=== PATIENT | male | born 1990 ===

== ENCOUNTER 2025-02-19 23:19 | Emergency (ER) | payer SELFPAY ==
[2025-02-19 23:29] VITALS: BP 134/79; PULSE 94; RESP 17; TEMP 36.4; O2SAT 96; BMI 36.8
[2025-02-20 00:10] LABS: Add Manual Diff / Slide Review NO; Basophils Absolute Auto 100 /uL (0-100); Basophils Percent Auto 0.8 % (0-2); Eosinophils Absolute Auto 400 /uL (0-450); Eosinophils Percent Auto 3.6 % (2-4); Hemoglobin 16.6 g/dL (13.5-17.5); Lymphocytes Absolute Auto 2200 /uL (1100-4500); Lymphocytes Percent Auto 20.7 % (25-40); Mean Corpuscular HGB Conc 35.3 % (30-36); Mean Corpuscular Volume 90.6 fL (80-100); Monocytes Absolute Auto 1500 /uL (0-900); Monocytes Percent Auto 14.2 % (3-14); Neutrophils Absolute Auto 6500 /uL (1500-7000); Neutrophils Percent Auto 60.7 % (50-75); Platelet Count 425 X10^3/uL (150-400); Red Blood Cell Count 5.19 X10^6/uL (4.5-5.9); Red Cell Distribution Width 14.8 % (11.6-14.8); White Blood Cell Count 10.8 X10^3/uL (4.5-11.0)
[2025-02-20 00:23] LABS: Alanine Aminotransferase 87 IU/L (<50); Albumin 4.7 g/dL (3.5-5.0); Albumin Globulin Ratio 1.2 (1.0-2.8); Alkaline Phosphatase 64 U/L (38-126); Aspartate Aminotransferase 39 IU/L (17-59); BUN Creatinine Ratio 15.1 (6-22); Bilirubin Total 0.7 mg/dL (0.2-1.3); Blood Urea Nitrogen 13 mg/dL (9-20); Calcium 9.9 mg/dL (8.4-10.2); Carbon Dioxide 27 mmol/L (22-32); Chloride 105 mmol/L (98-107); Estimated Glomerular Filt Rate > 60 mL/min (>60); Globulin 3.8 g/dL (1.7-4.1); Glucose 104 mg/dL (70-99); HEMOLYSIS 20 (0-50); Lipase 151 U/L (23-300); Potassium 4.1 mmol/L (3.4-5.1); Sodium 142 mmol/L (137-145); Total Protein 8.5 g/dL (6.3-8.2)
--- NOTE | 2025-02-20 00:45 | DI.CT.S_ITS ---
PROCEDURE: CT ABDOMEN PELVIS W CON INDICATIONS: abd pain, hx hernia, eval for obst TECHNIQUE: After the administration of intravenous contrast, axial sections acquired from the lung bases to the pubic symphysis. Coronal and sagittal reformats were performed. For radiation dose reduction, the following was used: automated exposure control, adjustment of mA and/or kV according to patient size. COMPARISON: None. FINDINGS: Image quality: Diagnostic Lower chest: Lung bases appear unremarkable. Normal heart size. Liver: Subcentimeter lesion in segment 7, too small to characterize, probably a cyst Gallbladder and biliary system: Under distended, nondilated Pancreas: Nondilated duct Spleen: No splenomegaly Adrenals: No discrete nodules Kidneys: No solid renal mass or hydronephrosis Vessels and lymph nodes: The main portal vein is patent. No abdominal aortic aneurysm or pathologic lymphadenopathy by size criteria. Bowel and peritoneum: Mild gastric distention. There is no acute small bowel obstruction. Colonic diverticula, without definite focal diverticular inflammation. The appendix is nondilated. No drainable abscess or ascites. Body wall: Possible tiny fat containing umbilical hernia. Pelvis: Under distended urinary bladder, with possible wall thickening. Prostate is unremarkable on limited CT evaluation Bones: No aggressive appearing osseous abnormality. IMPRESSION: No small bowel obstruction. Mild gastric distention. Under distended urinary bladder with mild wall thickening, not well assessed on this study. Correlate urinalysis. Other findings above. Dictated by: Flo Naranjo M.D. on 02/20/2025 at 1:11 Approved by: Flo Naranjo M.D. on 02/20/2025 at 1:15
[2025-02-20 01:10] VITALS: BP 123/78; PULSE 92; RESP 18; O2SAT 97
[2025-02-20 01:30] VITALS: PULSE 92; O2SAT 97
--- NOTE | 2025-02-20 01:58 | ED.ABDPAIN ---
HPI - Abdominal Pain General Chief Complaint: Abdominal Pain Stated Complaint: has hernia in pain Time Seen by Provider: 02/20/25 00:45 Source: patient Mode of arrival: Ambulatory History of Present Illness HPI narrative: 34-year-old male reports history of left lower groin area hernia awaiting elective repair through surgery [facility], was lifting 12 packs of soda earlier today, felt increased left lower quadrant pain. No fever or chills. No nausea or vomiting. No black or red stools. Related Data Allergies Allergy/AdvReac Type Severity Reaction Status Date / Time hydrocodone AdvReac Vomiting Verified 02/19/25 23:33 metoclopramide [From Reglan] AdvReac Agitated Verified 02/19/25 23:33 Patient History Social History Smoking Status: Current every day smoker Smoking Status: Current every day smoker tobacco type: cigarettes Exam Narrative Exam Narrative: GENERAL: Well-developed patient, in mild distress. HEAD: Atraumatic. Normocephalic. EYES: Pupils equal round and reactive. Extraocular motions intact. No scleral icterus. No injection or drainage. ENT: Nose without bleeding, purulent drainage. Throat without erythema, tonsillar hypertrophy or exudate. Airway patent. NECK: Trachea midline. Non tender CARDIOVASCULAR: Regular rate and rhythm without murmurs, gallops, or rubs. RESPIRATORY: Clear to auscultation. Breath sounds equal bilaterally. No wheezes, rales, or rhonchi. GASTROINTESTINAL: Abdomen nondistended, left lower quadrant tenderness on exam, no guarding or rebound. No obvious skin changes or bruising to left lower quadrant, no obvious ventral hernia. EXTREMITIES: No edema or joint tenderness. BACK: Nontender without deformity or crepitance. No flank tenderness. NEURO: AOx3. Motor functions grossly nonfocal SKIN: No rash or erythema of visible areas Initial Vital Signs Initial Vital Signs: Vital Signs Temperature 97.5 F L 02/19/25 23:29 Pulse Rate 94 H 02/19/25 23:29 Respiratory Rate 17 02/19/25 23:29 Blood Pressure 134/79 02/19/25 23:29 Pulse Oximetry 96 02/19/25 23:29 Oxygen Delivery Method Room Air 02/19/25 23:29 Course Orders Ordered: ED Orders 02/19/25 23:43 Complete Blood Count AUTO DIFF Stat Comprehensive Metabolic Panel Stat Lipase Stat 02/20/25 00:45 CT abdomen pelvis w con Stat Discontinued Medications Hydromorphone HCl (Hydromorphone 0.5 Mg Inj) 0.5 mg IV NOW ONE Stop: 02/20/25 02:20 Last Admin: 02/20/25 02:24 Dose: 0.5 mg Documented By: RICH Ondansetron HCl (Ondansetron 4 Mg/2 Ml Inj) 4 mg IV NOW PRN PRN Reason: Nausea And Vomiting Ondansetron HCl (Ondansetron 4 Mg Odt) 4 mg PO NOW PRN PRN Reason: Nausea And Vomiting Tramadol HCl (Tramadol 50 Mg Prepack) 1 bottle MISC DIRECTED ONE Stop: 02/20/25 02:20 Last Admin: 02/20/25 02:24 Dose: 1 bottle Documented By: RICH Vital Signs Vital signs: Vital Signs - 8 hr 02/19/25 23:29 02/20/25 01:10 02/20/25 01:30 Temperature 97.5 F L Pulse Rate 94 H 92 H 92 H Respiratory Rate 17 18 Blood Pressure 134/79 123/78 Pulse Oximetry 96 97 97 Oxygen Delivery Method Room Air 02/20/25 02:00 02/20/25 02:25 02/20/25 02:25 Temperature Pulse Rate 90 89 Respiratory Rate Blood Pressure 130/81 Pulse Oximetry 97 97 Oxygen Delivery Method 02/20/25 02:30 02/20/25 02:30 02/20/25 02:54 Temperature Pulse Rate 88 87 Respiratory Rate 18 14 Blood Pressure 127/78 126/79 Pulse Oximetry 97 96 Oxygen Delivery Method Room Air MDM - Abdominal Pain Lab Data Attestation: I reviewed the patient's lab results. Lab results narrative: White blood cell count 93358, hemoglobin 16.6, platelets adequate. Glucose 104. BUN 13 with creatinine 0.86. Serum CO2 27. Electrolytes unremarkable. ALT 87 with other LFTs unremarkable. Lipase 151 normal. Urine dip negative. 02/19/25 23:43 02/19/25 23:43 Labs: Lab Results 02/19/25 Range/Units 23:43 WBC 10.8 (4.5-11.0) X10^3/uL RBC 5.19 (4.5-5.9) X10^6/uL Hgb 16.6 (13.5-17.5) g/dL Hct 47.0 (41-53) % MCV 90.6 (80-100) fL MCH 32.0 (26-34) PG MCHC 35.3 (30-36) % RDW 14.8 (11.6-14.8) % Plt Count 425 H (150-400) X10^3/uL Neut % (Auto) 60.7 (50-75) % Lymph % (Auto) 20.7 L (25-40) % [place] % (Auto) 14.2 H (3-14) % Eos % (Auto) 3.6 (2-4) % Baso % (Auto) 0.8 (0-2) % Neut # (Auto) 6500 (1401-5691) /uL Lymph # (Auto) 2200 (5197-0668) /uL [place] # (Auto) 1500 H (0-900) /uL Eos # (Auto) 400 (0-450) /uL Baso # (Auto) 100 (0-100) /uL Sodium 142 (137-145) mmol/L Potassium 4.1 (3.4-5.1) mmol/L Chloride 105 (98-107) mmol/L Carbon Dioxide 27 (22-32) mmol/L BUN 13 (9-20) mg/dL Creatinine 0.86 (0.66-1.25) mg/dL Estimated GFR > 60 (>60) mL/min BUN/Creatinine Ratio 15.1 (6-22) Glucose 104 H (70-99) mg/dL Calcium 9.9 (8.4-10.2) mg/dL Total Bilirubin 0.7 (0.2-1.3) mg/dL AST 39 (17-59) IU/L ALT 87 H (<50) IU/L Alkaline Phosphatase 64 (38-126) U/L Total Protein 8.5 H (6.3-8.2) g/dL Albumin 4.7 (3.5-5.0) g/dL Globulin 3.8 (1.7-4.1) g/dL Albumin/Globulin Ratio 1.2 (1.0-2.8) Lipase 151 (23-300) U/L Point of care testing: Urine Dip Bedside Urine Glucose Negative Bedside Urine Bilirubin - Negative Bedside Urine Ketone - Negative Urine Specific [place] 1.01 Bedside Urine Occult Blood - Negative Bedside Urine pH 5.5 Bedside Urine Protein - Negative Bedside Urine Urobilinogen - Negative Bedside Urine Nitrite - Negative Bedside Urine Leukocytes - Negative Esterase Imaging Data CT scan - abdomen/pelvis: Radiologist's Impression: Close Abdomen/Pelvis CT (Signed) Flo Naranjo - 02/20/25 Launch?[address] [address] [address] Scan Report Signed Patient: Dong Angeles JR MR#: [id number] : 1990 Acct:[id number] Age/Sex: 34 / M Date of Service: 02/20/25 Loc: ED Accession Number: [id number] Procedure: CT abdomen pelvis w con Ordering Provider: Henry Henry MD PROCEDURE: CT ABDOMEN PELVIS W CON INDICATIONS: abd pain, hx hernia, eval for obst TECHNIQUE: After the administration of intravenous contrast, axial sections acquired from the lung bases to the pubic symphysis. Coronal and sagittal reformats were performed. For radiation dose reduction, the following was used: automated exposure control, adjustment of mA and/or kV according to patient size. COMPARISON: None. FINDINGS: Image quality: Diagnostic Lower chest: Lung bases appear unremarkable. Normal heart size. Liver: Subcentimeter lesion in segment 7, too small to characterize, probably a cyst Gallbladder and biliary system: Under distended, nondilated Pancreas: Nondilated duct Spleen: No splenomegaly Adrenals: No discrete nodules Kidneys: No solid renal mass or hydronephrosis Vessels and lymph nodes: The main portal vein is patent. No abdominal aortic aneurysm or pathologic lymphadenopathy by size criteria. Bowel and peritoneum: Mild gastric distention. There is no acute small bowel obstruction. Colonic diverticula, without definite focal diverticular inflammation. The appendix is nondilated. No drainable abscess or ascites. Body wall: Possible tiny fat containing umbilical hernia. Pelvis: Under distended urinary bladder, with possible wall thickening. Prostate is unremarkable on limited CT evaluation Bones: No aggressive appearing osseous abnormality. IMPRESSION: No small bowel obstruction. Mild gastric distention. Under distended urinary bladder with mild wall thickening, not well assessed on this study. Correlate urinalysis. Other findings above. Dictated by: Flo Naranjo M.D. on 02/20/2025 at 1:11 Approved by: Flo Naranjo M.D. on 02/20/2025 at 1:15 MDM Narrative Medical decision making narrative: 34-year-old male with history of left lower ventral hernia awaiting outpatient repair [place] surgery, was lifting flats of soda today, had increased left lower quadrant pain. Some tenderness on examination without any obvious ventral mass pulsatile or nonpulsatile. Screening labs unremarkable. CT abdomen and pelvis ordered. IV Dilaudid. DDx abdominal wall stain, symptomatic but reduced hernia, bowel obstruction, incarceratred bowel, strangulated bowel, other. CT abdomen and pelvis showed no acute changes. See radiology report. Home pack tramadol. Follow up with [place] surgeon advised. Return precautions discussed. Home with friends. Discharge Plan Departure Patient Disposition: Home Clinical Impression: Left lower quadrant abdominal pain Activity Restrictions/Additional Instructions: Left lower quadrant abdominal pain of unclear cause. History of hernia, awaiting elective repair from [place] surgery. Recent lifting of soda flats today. Increased left lower quadrant abdominal pain, no grossly obvious hernia ventral on exam. Some tenderness left lower quadrant. Screening labs generally unremarkable. CT abdomen and pelvis showed no acute process. It is possible to have musculoskeletal strain. It is possible to have hernia of bowel that is irritated from recent lifting Valsalva. No acute bowel changes however today noted on imaging. Trial of pain medications and close follow up with your surgeon. Recheck with your [facility] surgeon if not improved tomorrow. Return to this/nearest emergency department for any change worsening symptoms or any concerns prior. Stand Alone Forms: Patient Portal/API/Survey
[2025-02-20 02:00] VITALS: PULSE 90; O2SAT 97
[2025-02-20] MEDS: TRAMADOL 50 MG PREPACK 1 BOTTLE MISC (02:24)
[2025-02-20] MEDS: HYDROMORPHONE 0.5 MG INJ IV (02:24)
[2025-02-20 02:25] VITALS: BP 130/81; PULSE 89; O2SAT 97
[2025-02-20 02:30] VITALS: BP 127/78; PULSE 88; RESP 18; O2SAT 97
[2025-02-20 02:54] VITALS: BP 126/79; PULSE 87; RESP 14; O2SAT 96
== END 2025-02-20 02:55 | disposition home or self-care (01) ==
PROVIDERS: Emergency Provider Emergency Medicine
DX: R10.32 Left lower quadrant pain (principal)
CPT/HCPCS: 36415; 74177; 80053; 81003; 83690; 85025; 96374; 99284; J1171; Q9967

== ENCOUNTER 2025-02-28 21:48 | Emergency (ER) | payer OTHER, MEDICAID, SELFPAY ==
[2025-02-28 22:11] VITALS: BP 139/86; PULSE 89; RESP 18; TEMP 37.1; O2SAT 96; BMI 35.5
[2025-02-28 23:57] VITALS: BP 129/84; PULSE 88; RESP 20; O2SAT 97
[2025-03-01 01:55] VITALS: PULSE 86; O2SAT 98
[2025-03-01 02:00] VITALS: PULSE 88; O2SAT 97
[2025-03-01 02:30] VITALS: PULSE 85; O2SAT 96
[2025-03-01 02:30] LABS: Add Manual Diff / Slide Review NO; Basophils Absolute Auto 200 /uL (0-100); Basophils Percent Auto 1.4 % (0-2); Eosinophils Absolute Auto 400 /uL (0-450); Eosinophils Percent Auto 3.6 % (2-4); Hemoglobin 15.4 g/dL (13.5-17.5); Lymphocytes Absolute Auto 2700 /uL (1100-4500); Lymphocytes Percent Auto 24.6 % (25-40); Mean Corpuscular HGB Conc 35.1 % (30-36); Mean Corpuscular Hemoglobin 31.7 PG (26-34); Mean Corpuscular Volume 90.4 fL (80-100); Monocytes Absolute Auto 1300 /uL (0-900); Monocytes Percent Auto 12.1 % (3-14); Neutrophils Absolute Auto 6400 /uL (1500-7000); Neutrophils Percent Auto 58.3 % (50-75); Platelet Count 381 X10^3/uL (150-400); Red Blood Cell Count 4.87 X10^6/uL (4.5-5.9); Red Cell Distribution Width 14.7 % (11.6-14.8)
[2025-03-01 02:37] LABS: Lipase 176 U/L (23-300)
[2025-03-01 02:39] LABS: Alanine Aminotransferase 75 IU/L (<50); Albumin 4.4 g/dL (3.5-5.0); Albumin Globulin Ratio 1.4 (1.0-2.8); Alkaline Phosphatase 61 U/L (38-126); Aspartate Aminotransferase 37 IU/L (17-59); BUN Creatinine Ratio 16.5 (6-22); Bilirubin Total 0.6 mg/dL (0.2-1.3); Blood Urea Nitrogen 14 mg/dL (9-20); Calcium 9.6 mg/dL (8.4-10.2); Carbon Dioxide 29 mmol/L (22-32); Chloride 103 mmol/L (98-107); Estimated Glomerular Filt Rate > 60 mL/min (>60); Globulin 3.2 g/dL (1.7-4.1); Glucose 99 mg/dL (70-99); HEMOLYSIS 15 (0-50); Potassium 3.9 mmol/L (3.4-5.1); Sodium 139 mmol/L (137-145); Total Protein 7.6 g/dL (6.3-8.2)
--- NOTE | 2025-03-01 02:41 | ED.BACK ---
HPI - Back Pain/Injury General Chief Complaint: Back Pain/Injury Stated Complaint: All Over Body Pain Time Seen by Provider: 03/01/25 01:40 Source: patient History of Present Illness HPI Narrative: 34-year-old male with diagnosis of sarcoidosis two years ago, followed by pulmonology at [facility], taking methotrexate. Has diffuse myalgias typical of sarcoid related pain, usually gets Toradol and Dilaudid. Denies anterior chest pain, shortness of breath, abdominal pain, nausea or vomiting. Related Data Allergies Allergy/AdvReac Type Severity Reaction Status Date / Time hydrocodone AdvReac Vomiting Verified 02/28/25 22:12 metoclopramide (From Reglan) AdvReac Agitated Verified 02/28/25 22:12 Patient History Social History Smoking Status: Never smoker Smoking Status: Never smoker tobacco type: cigarettes Exam Narrative Exam Narrative: GENERAL: Well-developed patient, in mild distress. HEAD: Atraumatic. Normocephalic. EYES: Pupils equal round and reactive. Extraocular motions intact. No scleral icterus. No injection or drainage. ENT: Nose without bleeding, purulent drainage. Throat without erythema, tonsillar hypertrophy or exudate. Airway patent. NECK: Trachea midline. Non tender CARDIOVASCULAR: Regular rate and rhythm without murmurs, gallops, or rubs. RESPIRATORY: Clear to auscultation. Breath sounds equal bilaterally. No wheezes, rales, or rhonchi. GASTROINTESTINAL: Abdomen soft, non-tender, nondistended. EXTREMITIES: No edema or joint tenderness. BACK: Nontender without deformity or crepitance. No flank tenderness. NEURO: AOx3. Motor functions grossly nonfocal SKIN: No rash or erythema of visible areas Initial Vital Signs Initial Vital Signs: Vital Signs Temperature 98.7 F 02/28/25 22:11 Pulse Rate 89 02/28/25 22:11 Respiratory Rate 18 02/28/25 22:11 Blood Pressure 139/86 02/28/25 22:11 Pulse Oximetry 96 02/28/25 22:11 Oxygen Delivery Method Room Air 02/28/25 22:11 Course Orders Ordered: ED Orders 03/01/25 02:16 CBC Auto Diff [Complete Blood Count AUTO DIFF] Stat CMP [Comprehensive Metabolic Panel] Stat Lipase Stat Discontinued Medications Hydromorphone HCl (Hydromorphone 0.5 Mg Inj) 0.5 mg IV NOW ONE Stop: 03/01/25 02:44 Last Admin: 03/01/25 02:49 Dose: 0.5 mg Documented By: Hydromorphone HCl (Hydromorphone 0.5 Mg Inj) 0.5 mg IV NOW ONE Stop: 03/01/25 03:42 Last Admin: 03/01/25 03:50 Dose: 0.5 mg Ketorolac Tromethamine (Ketorolac 30 Mg/Ml Vial) 15 mg IV NOW ONE Stop: 03/01/25 02:44 Last Admin: 03/01/25 02:49 Dose: 15 mg Documented By: Tramadol HCl (Tramadol 50 Mg Prepack) 1 bottle MISC DIRECTED ONE Stop: 03/01/25 03:49 Vital Signs Vital signs: Vital Signs - 8 hr 02/28/25 22:11 02/28/25 23:57 03/01/25 01:55 Temperature 98.7 F Pulse Rate 89 88 86 Respiratory Rate 18 20 Blood Pressure 139/86 129/84 Pulse Oximetry 96 97 98 Oxygen Delivery Method Room Air Room Air Room Air 03/01/25 02:00 03/01/25 02:30 03/01/25 02:50 Temperature Pulse Rate 88 85 Respiratory Rate Blood Pressure 129/86 Pulse Oximetry 97 96 Oxygen Delivery Method Room Air 03/01/25 02:50 03/01/25 03:00 03/01/25 03:00 Temperature Pulse Rate 81 77 Respiratory Rate Blood Pressure 131/85 Pulse Oximetry 97 96 Oxygen Delivery Method 03/01/25 03:30 03/01/25 03:30 Temperature Pulse Rate 76 Respiratory Rate Blood Pressure 128/79 Pulse Oximetry 97 Oxygen Delivery Method Room Air MDM - Back Pain/Injury Lab Data Attestation: I reviewed the patient's lab results. Lab results narrative: White blood cell count 64638, hemoglobin 15.4, platelets adequate. Glucose 99. Normal renal function. Normal serum CO2. Normal electrolytes. ALT mild elevation, other liver functions normal. Lipase normal. 03/01/25 02:16 03/01/25 02:16 Labs: Lab Results 03/01/25 Range/Units 02:16 WBC 11.0 (4.5-11.0) X10^3/uL RBC 4.87 (4.5-5.9) X10^6/uL Hgb 15.4 (13.5-17.5) g/dL Hct 44.0 (41-53) % MCV 90.4 (80-100) fL MCH 31.7 (26-34) PG MCHC 35.1 (30-36) % RDW 14.7 (11.6-14.8) % Plt Count 381 (150-400) X10^3/uL Neut % (Auto) 58.3 (50-75) % Lymph % (Auto) 24.6 L (25-40) % [place] % (Auto) 12.1 (3-14) % Eos % (Auto) 3.6 (2-4) % Baso % (Auto) 1.4 (0-2) % Neut # (Auto) 6400 (0050-5290) /uL Lymph # (Auto) 2700 (3381-8910) /uL [place] # (Auto) 1300 H (0-900) /uL Eos # (Auto) 400 (0-450) /uL Baso # (Auto) 200 H (0-100) /uL Sodium 139 (137-145) mmol/L Potassium 3.9 (3.4-5.1) mmol/L Chloride 103 (98-107) mmol/L Carbon Dioxide 29 (22-32) mmol/L BUN 14 (9-20) mg/dL Creatinine 0.85 (0.66-1.25) mg/dL Estimated GFR > 60 (>60) mL/min BUN/Creatinine Ratio 16.5 (6-22) Glucose 99 (70-99) mg/dL Calcium 9.6 (8.4-10.2) mg/dL Total Bilirubin 0.6 (0.2-1.3) mg/dL AST 37 (17-59) IU/L ALT 75 H (<50) IU/L Alkaline Phosphatase 61 (38-126) U/L Total Protein 7.6 (6.3-8.2) g/dL Albumin 4.4 (3.5-5.0) g/dL Globulin 3.2 (1.7-4.1) g/dL Albumin/Globulin Ratio 1.4 (1.0-2.8) Lipase 176 (23-300) U/L MDM Narrative Medical decision making narrative: 34-year-old male with sarcoid related diffuse myalgias, typical flare of symptoms, usually responsive to IV Dilaudid and Toradol, ordered. Screening labs unremarkable. Patient feels improved. Has allergy to hydrocodone. We will give home pack tramadol. Follow up with pulmonology and PCP at [facility] advised. Home with family. Discharge Plan Departure Patient Disposition: Home Clinical Impression: Myalgia, History of sarcoidosis Activity Restrictions/Additional Instructions: History of sarcoidosis diagnosis 2 years ago, flares treated typically with IV Dilaudid and Toradol. Blood testing showed normal renal function. Doses given. Symptoms improved. Home pack of tramadol. Follow up advised with your regular providers at [facility]. Continue your methotrexate and other chronic medications as prescribed. Stand Alone Forms: Patient Portal/API
[2025-03-01] MEDS: KETOROLAC 30 MG/ML VIAL 15 MG IV (02:49)
[2025-03-01] MEDS: HYDROMORPHONE 0.5 MG INJ IV ×2 (02:49→03:50)
[2025-03-01 02:50] VITALS: BP 129/86; PULSE 81; O2SAT 97
[2025-03-01 03:00] VITALS: BP 131/85; PULSE 77; O2SAT 96
[2025-03-01 03:30] VITALS: BP 128/79; PULSE 76; O2SAT 97
== END 2025-03-01 03:57 | disposition home or self-care (01) ==
PROVIDERS: Emergency Provider Emergency Medicine
DX: M79.10 Myalgia, unspecified site (principal); D86.9 Sarcoidosis, unspecified
CPT/HCPCS: 36415; 80053; 83690; 85025; 96374; 96375; 96376; 99284; J1171; J1885

== ENCOUNTER 2025-03-09 23:25 | Emergency (ER) | payer OTHER, SELFPAY ==
--- NOTE | 2025-03-09 23:30 | ED_ITS ---
HPI - Seizure General Chief Complaint: Seizure Stated Complaint: Seizure, Head Injury Time Seen by Provider: 03/09/25 23:30 History of Present Illness HPI Narrative: 34-year-old male with a past medical history of sarcoid on methotrexate, seizures on Keppra comes into the ED from home for evaluation of seizure. He states that he has not been able to take any of his antiseizure medications over the past 2-3 days due to the fact that he is recently moving here and ran out. States that his last seizure before this was a proximally 1 month ago, he states that he is unsure of the Keppra dose but states that he will normally gets seizures a proximally 1 time a month even while on it. According to brother at bedside he states that he witnessed patient have general tonic-clonic seizures at around 9:30 a.m. lasted for no more than 30 seconds patient now completely back to baseline. States that when this happened he did hit his head on the sink. At time of evaluation NIH of 0 no focal deficits states that he feels completely normal states that he is still in the process of getting a PCP and neurologist no other complaints at this time Related Data Previous Rx's ?Medication ?Instructions ?Recorded levetiracetam 500 mg tablet 500 mg PO BID 1 month #60 tabs 03/10/25 (Keppra) Allergies Allergy/AdvReac Type Severity Reaction Status Date / Time hydrocodone AdvReac Vomiting Verified 03/09/25 23:32 metoclopramide (From Reglan) AdvReac Agitated Verified 03/09/25 23:32 Review of Systems Review of Systems Narrative: General: Denies fever, chills, weight loss HEENT: Denies headache, eye drainage, eye irritation, head trauma, sore throat, voice change Cardiovascular: Denies any chest pain, palpitations, tachycardia Respiratory: Denies any shortness of breath, cough, wheeze, stridor GI/: Denies any abdominal pain, nausea, vomiting, diarrhea, bright red blood per rectum, melanotic stools, urinary frequency, urinary retention, dysuria, hematuria MSK: Denies any joint pain, muscle pains, swelling Skin: Denies any rashes, lesions, discoloration Neuro: Positive seizure, Denies any headache, lightheadedness, dizziness, fainting, weakness Psych: Denies SI/HI Patient History tobacco type: cigarettes Exam Narrative Exam Narrative: General: Cooperative, well-developed, not in acute distress HEENT: Normocephalic, atraumatic, PERRLA, normal sclera, eyelids normal Neck: Active full range of motion, atraumatic Chest: Normal to inspection, negative crepitus, no overlying erythema ecchymosis Respiratory: Normal respiratory effort, not in acute respiratory distress, clear to auscultation bilaterally negative cough, wheeze, tachypnea, rhonchi, rales Cardiology: Regular rate rhythm negative gallop, murmur, rubs GI/: No tenderness to palpation, soft, non rigid, normal to inspection, exam deferred MSK: Full active range of motion in all 4 extremities, atraumatic, no tenderness to palpation of any bony prominences Skin: No rashes or lesions noted Neuro: Alert awake oriented x3, moves all 4 extremities spontaneously, cranial nerves intact, able to answer all questions appropriately follows commands appropriately Psych: Cooperative, negative suicidal or homicidal ideations Initial Vital Signs Initial Vital Signs: Vital Signs Temperature 98.2 F 03/09/25 23:32 Pulse Rate 112 H 03/09/25 23:32 Respiratory Rate 16 03/09/25 23:32 Blood Pressure 139/95 H 03/09/25 23:32 Pulse Oximetry 96 03/09/25 23:32 Oxygen Delivery Method Room Air 03/09/25 23:32 Course Orders Ordered: ED Orders 03/09/25 23:34 CT cervical spine wo con Stat CT head/brain wo con Stat 03/09/25 23:35 CBC Auto Diff [Complete Blood Count AUTO DIFF] Stat CMP [Comprehensive Metabolic Panel] Stat Lipase Stat MAG [Magnesium] Stat Discontinued Medications Levetiracetam 1,000 mg/ Sodium (Chloride) 110 mls @ 440 mls/hr IV NOW ONE Stop: 03/09/25 23:34 Last Infusion: 03/10/25 00:11 Dose: Infused Documented By: Admin: 03/09/25 23:48 Dose: 440 mls/hr Documented By: RICH Morphine Sulfate (Morphine 4 Mg/Ml Inj) 4 mg IV NOW ONE Stop: 03/09/25 23:51 Last Admin: 03/10/25 00:11 Dose: 4 mg Documented By: RICH Vital Signs Vital signs: Vital Signs - 8 hr 03/09/25 23:32 03/09/25 23:36 03/09/25 23:49 Temperature 98.2 F Pulse Rate 112 H 110 H 110 H Respiratory Rate 16 Blood Pressure 139/95 H Pulse Oximetry 96 97 96 Oxygen Delivery Method Room Air 03/09/25 23:49 03/10/25 00:00 03/10/25 00:00 Temperature Pulse Rate 107 H Respiratory Rate Blood Pressure 145/80 H 143/86 H Pulse Oximetry 96 Oxygen Delivery Method Room Air MDM - Seizure Differential Diagnosis Differential diagnosis: Likely other (Intracranial hemorrhage, stroke seizure, electrolyte abnormality) Lab Data 03/09/25 23:35 03/09/25 23:35 Labs: Lab Results 03/09/25 Range/Units 23:35 WBC 10.2 (4.5-11.0) X10^3/uL RBC 5.34 (4.5-5.9) X10^6/uL Hgb 16.9 (13.5-17.5) g/dL Hct 48.9 (41-53) % MCV 91.6 (80-100) fL MCH 31.7 (26-34) PG MCHC 34.6 (30-36) % RDW 14.4 (11.6-14.8) % Plt Count 410 H (150-400) X10^3/uL Neut % (Auto) 70.6 (50-75) % Lymph % (Auto) 16.6 L (25-40) % [place] % (Auto) 8.4 (3-14) % Eos % (Auto) 3.6 (2-4) % Baso % (Auto) 0.8 (0-2) % Neut # (Auto) 7200 H (8578-0974) /uL Lymph # (Auto) 1700 (5223-7374) /uL [place] # (Auto) 900 (0-900) /uL Eos # (Auto) 400 (0-450) /uL Baso # (Auto) 100 (0-100) /uL Sodium 139 (137-145) mmol/L Potassium 4.2 (3.4-5.1) mmol/L Chloride 104 (98-107) mmol/L Carbon Dioxide 27 (22-32) mmol/L BUN 17 (9-20) mg/dL Creatinine 0.77 (0.66-1.25) mg/dL Estimated GFR > 60 (>60) mL/min BUN/Creatinine Ratio 22.1 H (6-22) Glucose 155 H (70-99) mg/dL Calcium 9.5 (8.4-10.2) mg/dL Magnesium 1.9 (1.6-2.3) mg/dL Total Bilirubin 0.7 (0.2-1.3) mg/dL AST 40 (17-59) IU/L ALT 70 H (<50) IU/L Alkaline Phosphatase 62 (38-126) U/L Total Protein 8.4 H (6.3-8.2) g/dL Albumin 4.7 (3.5-5.0) g/dL Globulin 3.7 (1.7-4.1) g/dL Albumin/Globulin Ratio 1.3 (1.0-2.8) Lipase 96 (23-300) U/L Imaging Data CT scan - head: Radiologist's Impression: [address] [address] [address] Scan Report Signed Patient: Dong Angeles JR MR#: [id number] : 1990 Acct:[id number] Age/Sex: 34 / M Date of Service: 03/09/25 Loc: ED Accession Number: [id number] Procedure: CT head/brain wo con Ordering Provider: Beto Houston D.O. PROCEDURE: CT HEAD/BRAIN WO CON INDICATIONS: Trauma, after seizure TECHNIQUE: Noncontrast 4.5 mm thick angled axial sections acquired from the foramen magnum to the vertex, with coronal and sagittal reformats. For radiation dose reduction, the following was used: automated exposure control, adjustment of mA and/or kV according to patient size. COMPARISON: [facility], CT, CT HEAD WITHOUT CONTRAST, 11/14/2024, 1:01. FINDINGS: Image quality: Diagnostic. CSF spaces: Basal cisterns are patent. No extra-axial fluid collections. Ventricles are normal in size and shape. Brain: No midline shift. No intracranial mass effect or hemorrhage. Morris- white matter interface is normal. Skull and face: Calvarium and visualized facial bones are intact, without suspicious lesions. Sinuses: Visualized sinuses and mastoids are clear. IMPRESSION: No acute intracranial pathology. CT - cervical spine: Radiologist's Impression: [address] [address] [address] Scan Report Signed Patient: Dong Angeles JR MR#: [id number] : 1990 Acct:[id number] Age/Sex: 34 / M Date of Service: 03/09/25 Loc: ED Accession Number: [id number] Procedure: CT cervical spine wo con Ordering Provider: Beto Houston D.O. PROCEDURE: CT CERVICAL SPINE WO CON INDICATIONS: trauma TECHNIQUE: Noncontrast 3 mm thick sections acquired from the skull base to the T4 level. Sagittal and coronal reformats were then constructed. For radiation dose reduction, the following was used: automated exposure control, adjustment of mA and/or kV according to patient size. COMPARISON: None. FINDINGS: Image quality: Diagnostic. Bones: No acute fractures or dislocations. No acute compression fractures of the vertebral bodies. Craniocervical junction is intact. C1-C2 relationship is preserved. Visualized superior ribs are intact. Straightening of normal cervical lordosis which may be due to patient positioning and/or concurrent muscle spasms. Soft tissues: Prevertebral soft tissues are normal in thickness. No paravertebral hematomas. No apical pneumothoraces. IMPRESSION: CT cervical spine without acute fracture or traumatic malalignment. Mild straightening of normal cervical lordosis likely related to positioning and/or concurrent muscle spasms. MDM Narrative Medical decision making narrative: Patient is a 34-year-old male with a past medical history of sarcoid on methotrexate, seizures on Keppra presenting for witnessed seizure activity states it was at around 9:30 p.m. witnessed by brother states that it lasted for no more than 30 seconds, he states that when he started seizing he did hit his head on the counter, states that he awoke and is now completely back at baseline, he states he is not taking any of his Keppra for the past 2-3 days he states he does not remember the exact dose states that it is because he is currently moving and ran out. Patient had lab work imaging performed here in the emergency department, patient also had 1 g of Keppra IV. CT scan of the head without any acute fractures or abnormalities, CT cervical spine without any acute fractures, patient did not have another seizure while here in the emergency department lab work otherwise unremarkable, patient was discharged home with outpatient follow up and instructed follow up with the primary care and Neurology in outpatient setting he was also provided prescription for his Keppra Discharge Plan Departure Patient Disposition: Home Clinical Impression: Breakthrough seizure, Closed head injury Instructions: DI for Seizure Disorder -- Adult Activity Restrictions/Additional Instructions: Please follow up with primary care and Neurology in outpatient setting Please read the discharge instructions sheet carefully and bring all papers to all doctor follow-up visits, as it may contain information that your doctor may want to see. Disease processes change and evolve, if your symptoms worsen or if you develop any new symptoms that are concerning to you please return for evaluation. Your evaluation today does not show any evidence of any life- threatening/serious illnesses requiring admission to the hospital or surgery. Please follow-up with your doctor for re-evaluation in approximately 1 day. Seek immediate medical attention for any worrisome symptoms. *If you do not have a primary care provider please contact the [facility] Resource line at [phone]. They will ask some questions about your medical history and help get you set up with a doctor in the community. Prescriptions: New levetiracetam [Keppra] 500 mg tablet 500 mg PO BID 30 Days Qty: 60 0RF Stand Alone Forms: Patient Portal/API
[2025-03-09 23:32] VITALS: BP 139/95; PULSE 112; RESP 16; TEMP 36.8; O2SAT 96; BMI 35.9
--- NOTE | 2025-03-09 23:34 | DI.CT.S_ITS ---
PROCEDURE: CT CERVICAL SPINE WO CON INDICATIONS: trauma TECHNIQUE: Noncontrast 3 mm thick sections acquired from the skull base to the T4 level. Sagittal and coronal reformats were then constructed. For radiation dose reduction, the following was used: automated exposure control, adjustment of mA and/or kV according to patient size. COMPARISON: None. FINDINGS: Image quality: Diagnostic. Bones: No acute fractures or dislocations. No acute compression fractures of the vertebral bodies. Craniocervical junction is intact. C1-C2 relationship is preserved. Visualized superior ribs are intact. Straightening of normal cervical lordosis which may be due to patient positioning and/or concurrent muscle spasms. Soft tissues: Prevertebral soft tissues are normal in thickness. No paravertebral hematomas. No apical pneumothoraces. IMPRESSION: CT cervical spine without acute fracture or traumatic malalignment. Mild straightening of normal cervical lordosis likely related to positioning and/or concurrent muscle spasms. Dictated by: Malachi Price M.D. on 03/10/2025 at 0:57 Approved by: Malachi Price M.D. on 03/10/2025 at 0:59
--- NOTE | 2025-03-09 23:34 | DI.CT.S_ITS ---
PROCEDURE: CT HEAD/BRAIN WO CON INDICATIONS: Trauma, after seizure TECHNIQUE: Noncontrast 4.5 mm thick angled axial sections acquired from the foramen magnum to the vertex, with coronal and sagittal reformats. For radiation dose reduction, the following was used: automated exposure control, adjustment of mA and/or kV according to patient size. COMPARISON: [facility], CT, CT HEAD WITHOUT CONTRAST, 11/14/2024, 1:01. FINDINGS: Image quality: Diagnostic. CSF spaces: Basal cisterns are patent. No extra-axial fluid collections. Ventricles are normal in size and shape. Brain: No midline shift. No intracranial mass effect or hemorrhage. Morris- white matter interface is normal. Skull and face: Calvarium and visualized facial bones are intact, without suspicious lesions. Sinuses: Visualized sinuses and mastoids are clear. IMPRESSION: No acute intracranial pathology. Dictated by: Malachi Price M.D. on 03/10/2025 at 0:57 Approved by: Malachi Price M.D. on 03/10/2025 at 0:57
[2025-03-09 23:36] VITALS: PULSE 110; O2SAT 97
[2025-03-09 23:44] LABS: Add Manual Diff / Slide Review NO; Basophils Absolute Auto 100 /uL (0-100); Basophils Percent Auto 0.8 % (0-2); Eosinophils Absolute Auto 400 /uL (0-450); Eosinophils Percent Auto 3.6 % (2-4); Hematocrit 48.9 % (41-53); Hemoglobin 16.9 g/dL (13.5-17.5); Lymphocytes Absolute Auto 1700 /uL (1100-4500); Lymphocytes Percent Auto 16.6 % (25-40); Mean Corpuscular HGB Conc 34.6 % (30-36); Mean Corpuscular Hemoglobin 31.7 PG (26-34); Mean Corpuscular Volume 91.6 fL (80-100); Monocytes Absolute Auto 900 /uL (0-900); Monocytes Percent Auto 8.4 % (3-14); Neutrophils Absolute Auto 7200 /uL (1500-7000); Neutrophils Percent Auto 70.6 % (50-75); Platelet Count 410 X10^3/uL (150-400); Red Blood Cell Count 5.34 X10^6/uL (4.5-5.9); Red Cell Distribution Width 14.4 % (11.6-14.8); White Blood Cell Count 10.2 X10^3/uL (4.5-11.0)
[2025-03-09] MEDS: levETIRAcetam 1,000 MG in SODIUM CHLORIDE 0.9% 100 ML 440 MG IV (23:48)
[2025-03-09 23:49] VITALS: BP 145/80; PULSE 110; O2SAT 96
[2025-03-09 23:57] LABS: Alanine Aminotransferase 70 IU/L (<50); Albumin 4.7 g/dL (3.5-5.0); Albumin Globulin Ratio 1.3 (1.0-2.8); BUN Creatinine Ratio 22.1 (6-22); Bilirubin Total 0.7 mg/dL (0.2-1.3); Blood Urea Nitrogen 17 mg/dL (9-20); Calcium 9.5 mg/dL (8.4-10.2); Carbon Dioxide 27 mmol/L (22-32); Chloride 104 mmol/L (98-107); Estimated Glomerular Filt Rate > 60 mL/min (>60); Globulin 3.7 g/dL (1.7-4.1); Glucose 155 mg/dL (70-99); Lipase 96 U/L (23-300); Magnesium 1.9 mg/dL (1.6-2.3); Sodium 139 mmol/L (137-145); Total Protein 8.4 g/dL (6.3-8.2)
[2025-03-09 23:58] LABS: HEMOLYSIS 58 (0-50)
[2025-03-09 23:59] LABS: Alkaline Phosphatase 62 U/L (38-126); Aspartate Aminotransferase 40 IU/L (17-59); Potassium 4.2 mmol/L (3.4-5.1)
[2025-03-10] VITALS: BP 143/86; PULSE 107; O2SAT 96
[2025-03-10] MEDS: MORPHINE 4 MG/ML INJ IV (00:11)
[2025-03-10 00:30] VITALS: BP 146/90; PULSE 108; O2SAT 96
[2025-03-10 01:00] VITALS: BP 150/98; PULSE 101; RESP 18; O2SAT 97
== END 2025-03-10 01:15 | disposition home or self-care (01) ==
PROVIDERS: Emergency Provider Student in an Organized Health Care Education/Training Program
DX: R56.9 Unspecified convulsions (principal); S09.8XXA Other specified injuries of head, initial encounter; W22.8XXA Striking against or struck by other objects, initial encounter; Z87.898 Personal history of other specified conditions
CPT/HCPCS: 36415; 70450; 72125; 80053; 83690; 83735; 85025; 96365; 96375; 99284; J1953; J2270